=== PATIENT | female | born 1965 | race Caucasian/White ===

== ENCOUNTER → 2017-11-13 | Day surgery (SDC) | payer BC ==
[~2017-11-13] MED LIST: Metoclopramide 10 MG/2 ML SDV IV PRN; Midazolam 1 MG/ML 5 ML SDV ONE; Propofol 200 MG/20 ML SDV ONE; Sodium Chloride 0.9% 1,000 ML IV SCH; Sodium Chloride 0.9% 10 ML Syringe FLUSH PRN
--- NOTE | 2017-11-13 11:47 | OR ---
DATE OF OPERATION: 11/13/2017 PREOPERATIVE DIAGNOSIS: Personal history of polyps. POSTOPERATIVE DIAGNOSIS: Personal history of polyps. ANESTHESIA: MAC. OPERATIVE PROCEDURE: Colonoscopy. ESTIMATED BLOOD LOSS: None. COMPLICATIONS: None. INDICATIONS FOR THE PROCEDURE: The patient is a 51-year-old female, who has had 2 previous colonoscopies initially for chronic diarrhea. The patient was found to have 1 polyp 7 years ago. She had a repeat colonoscopy 5 to 6 years ago, which was normal. The patient is here today for colonoscopy. Denies any bowel change since that time. DESCRIPTION OF PROCEDURE: Informed consent was obtained from the patient. The patient was taken to the operating room, placed on table in left lateral decubitus position. Monitored anesthesia care was administered. On digital rectal exam, no masses were identified. Colonoscope was then advanced through the anus, directed toward the cecum. Cecum was identified by appendiceal orifice and ileocecal valve. Colonoscope was then slowly withdrawn. No masses. No polyps. No areas of AV malformations, ischemia, or inflammation were identified. Colonoscope was then withdrawn. FINDINGS: Normal colonoscopy. RECOMMENDATIONS: Due to the personal history of polyps, would recommend repeat colonoscopy in 5 years. SANTINO/ANA /[id number] NAVIN
== END ==
LOC: LB.SDS 08:58
PROVIDERS: ATTEND Surgery
DX: Z12.11 Encounter for screening for malignant neoplasm of colon (principal); Z86.010 Personal history of colon polyps
CPT/HCPCS: 45378; J2250; J2704; J7040